=== PATIENT | female | born 1950 | race Caucasian/White ===

== ENCOUNTER 2020-04-12 01:27 | Inpatient (IN) | payer MEDICARE ==
[2020-04-12] VITALS (19 sets, daily range): BP systolic 104–183; BP diastolic 54–116
[~2020-04-12] VITALS: Ht 167.6 cm; Wt 110.6 kg
--- NOTE | 2020-04-12 01:30 | NUR ---
RECIEVED REPORT FROM PARI AT [facility]. PT WAS INTUBATED R/T RESPIRATORY FAILURE. HX: OF DIABETES AND HTN, AX TO CODEINE. NO HEAD CT WAS OBTAINED RT MACHINE UNABLE TO SUPPORT INTUBATED PT. PT HAS 18 G IV IN LAC, AND 18 G IV R HAND. SIZE [address] AND [address].
--- NOTE | 2020-04-12 01:40 | NUR ---
X RAY AT BEDSIDE
[2020-04-12] MEDS ORDERED: iohexol 350MG/ML 100ml bottle IV ONE (01:44)
--- NOTE | 2020-04-12 01:45 | NUR ---
PT TO CT
[2020-04-12] MEDS ORDERED: propofol 1000mg/100ml bottle 100 ML IV SCH (01:46)
[2020-04-12] MEDS ORDERED: FENTANYL-0.9 % NACL/PF 100 ML IV PRN (01:46)
--- NOTE | 2020-04-12 02:05 | NUR ---
PT BACK FROM CT
[2020-04-12] MEDS ORDERED: azithromycin/NS 500mg/250ml 250 ML IV ONE (03:00)
--- NOTE | 2020-04-12 03:16 | NUR ---
rt here to pull et tube 3-4 cm per MD Keita
[2020-04-12] MEDS: fentaNYL/PF 50MCG/1 ML 2ML syringe IV PRN (03:46)
[2020-04-12] MEDS ORDERED: acetaminophen 325mg tablet PO PRN ×2 (04:05)
[2020-04-12] MEDS ORDERED: potassium CL 10mEq/100ml bag 100 ML IV PRN (04:05)
[2020-04-12] MEDS ORDERED: dextrose ORAL solution 15 GM/59 ML bottle PO PRN ×2 (04:05)
[2020-04-12] MEDS ORDERED: glucagon, human recombinant 1mg kit SUBCUT PRN (04:05)
[2020-04-12] MEDS ORDERED: MESSAGE TO PHARMACY PO ONE (04:05)
[2020-04-12] MEDS ORDERED: ondansetron/PF 4mg/2ml inj IV PRN (04:05)
[2020-04-12] MEDS ORDERED: dextrose 50%-water 50ml dispensing syringe IV PRN ×2 (04:05)
[2020-04-12] MEDS ORDERED: albuterol 2.5 MG/3 ML nebule NEB PRN (04:05)
[2020-04-12] MEDS ORDERED: acetaminophen 650mg rectal suppository RC PRN (04:05)
[2020-04-12] MEDS ORDERED: insulin Lispro (HumaLOG) vial - multi-dose SQ SCH (04:05)
[2020-04-12] MEDS ORDERED: CHOL-4 PO (04:06)
[2020-04-12] MEDS ORDERED: TOPI50TA24 PO (04:06)
[2020-04-12] MEDS ORDERED: LISI40TA4 PO (04:16)
[2020-04-12] MEDS ORDERED: DULO30CA52 PO (04:16)
[2020-04-12] MEDS ORDERED: INSU100I31 SQ (04:16)
[2020-04-12] MEDS ORDERED: FURO40TA4 PO (04:16)
[2020-04-12] MEDS ORDERED: POTA10TA19 PO (04:16)
[2020-04-12 04:59] LABS: CLARITY,URINE CLEAR (Clear); COLOR,URINE YELLOW (Yellow); GLUCOSE, URINE NEGATIVE (Neg); KETONES,URINE NEGATIVE (Neg); LEUKOCYTE ESTERASE ,URINE SMALL (Neg); NITRITES, URINE NEGATIVE (Neg); OCCULT BLOOD,URINE NEGATIVE (Neg); PH,URINE 6.5 (4.8-8.0); PROTEIN,URINE NEGATIVE (Neg); UROBILINOGEN,URINE 0.2 E.U/dL (0.2-1.0)
[2020-04-12 05:06] LABS: UA COLLECTION TYPE FOLEY CATH
[2020-04-12 05:07] LABS: BACTERIA,URINE NONE SEEN /HPF (Neg); RBC,URINE NONE SEEN /HPF (0-2); WBC,URINE 0-4 /HPF (0-4)
[2020-04-12 05:08] LABS: SQUAMOUS EPITHELIAL CELL,UR FEW /LPF (FEW)
[2020-04-12] MEDS: normal saline 1000ml 1,000 ML IV SCH ×2 (05:23→15:05)
[2020-04-12] MEDS: FENTANYL-0.9 % NACL/PF 100 ML IV PRN ×3 (05:24→22:10)
--- NOTE | 2020-04-12 05:27 | NUR ---
pt arrived to room around 0500, report and chart received from Stacey VALENCIA and was able to ask questions. Pt transferred to CICU bed, placed on the monitor, and drips were switched to our pumps. The pt is hypertensive, Angel Luis COVERING AND LINING SUPERVISOR is aware, we are currently switching over sedation to fentanyl and versed drips. NG in left nare, secured with tape and placed to low intermittent suction, draining light green gastric contents. Ordaz catheter secured and draining clear yellow urine. Skin clear and intact. 8.0 ET tube at 22cm @ the teeth secured with comfit placed to vent, pt tolerating it well. The pt does have moderate to large amounts of thick creamy vergara secretions being suctioned from the ET tube. Will continue to monitor
--- NOTE | 2020-04-12 06:52 | NUR ---
Problems reprioritized. Patient report given, questions answered & plan of care reviewed with Ann VALENCIA.
[2020-04-12] MEDS: docusate sodium 100mg/10ml UD cup PO SCH ×2 (07:07→21:21)
[2020-04-12] MEDS: furosemide 40mg tablet PO SCH (07:08)
[2020-04-12] MEDS: lisinopril 20mg tablet PO SCH (07:08)
[2020-04-12] MEDS: pantoprazole 40 MG vial IV SCH (07:08)
[2020-04-12] MEDS: ipratropium/albuterol 3ml nebule NEB SCH ×5 (07:47→22:53)
[2020-04-12] MEDS: duloxetine 30mg CAPSULE.DR PO SCH (08:00)
[2020-04-12] MEDS ORDERED: CHOLECALCIFEROL 10000 UNIT PO SCH (08:00)
[2020-04-12] MEDS: topiramate 25mg tablet PO SCH ×2 (09:15→21:22)
[2020-04-12 10:40] LABS: BASOPHILS # (AUTO) 0.1 X10'3 (0-0.2); BASOPHILS % (AUTO) 0.4 % (0-1); EOSINOPHILS # (AUTO) 0.1 X10'3 (0-0.9); EOSINOPHILS % (AUTO) 0.3 % (0-6); HEMATOCRIT 46.3 % (35.0-45.0); LYMPHOCYTES # (AUTO) 0.7 X10'3 (1.1-4.8); LYMPHOCYTES % (AUTO) 4.1 % (21-51); MEAN CORPUSCULAR HEMOGLOBIN 28.3 PG (27.0-31.0); MEAN CORPUSCULAR HGB CONC 32.4 g/dL (33.0-36.5); MEAN CORPUSCULAR VOLUME 87.5 FL (78-98); MEAN PLATELET VOLUME 7.9 FL (7.4-10.4); MONOCYTES # (AUTO) 0.7 X10'3 (0-0.9); MONOCYTES % (AUTO) 4.2 % (2-12); PLATELET COUNT 230 X10'3 (140-440); RED BLOOD COUNT 5.29 X10'6 (4.20-5.60); WHITE BLOOD COUNT 17.6 X10'3 (4.5-11.0)
[2020-04-12] MEDS: enoxaparin 40mg/0.4ml syringe SUBCUT SCH (10:47)
[2020-04-12 10:57] LABS: ALANINE AMINOTRANSFERASE 10 U/L (12-78); ALBUMIN 2.9 G/DL (3.4-5.0); ALBUMIN/GLOBULIN RATIO 0.6 (1.1-1.5); ALKALINE PHOSPHATASE 122 IU/L (46-116); ANION GAP 6 (8-16); ASPARTATE AMINO TRANSFERASE 15 U/L (10-37); BILIRUBIN,TOTAL 0.6 MG/DL (0.1-1.0); BLOOD UREA NITROGEN 11 MG/DL (7-18); BUN/CREATININE RATIO 10.5 (6.6-38.0); CALCIUM 8.3 MG/DL (8.5-10.1); CHLORIDE 106 MMOL/L (99-107); CREATININE 1.05 MG/DL (0.40-0.90); GLUCOSE 154 MG/DL (70-104); PARTIAL THROMBOPLASTIN TIME 26 SECONDS (22-32); PHOSPHORUS 3.5 MG/DL (2.3-4.5); POTASSIUM 3.7 MMOL/L (3.5-5.1); SODIUM 142 MMOL/L (135-145); TOTAL CARBON DIOXIDE 29.8 MMOL/L (24-32); TOTAL PROTEIN 7.4 G/DL (6.4-8.2); eGFR 52 ML/MIN
[2020-04-12 10:59] LABS: HEMOGLOBIN A1C 6.9 % (4.5-6.2)
--- NOTE | 2020-04-12 12:00 | NUR ---
Initial: pt intubated after reportedly having gurgling respirations after eating yogurt and went unresponsive, possibly aspirated per H&P. Has h/o HTN, and Type II DM. Per H&P CT revealed left lower lobe consolidation consistent with lobar pneumonia and bilateral interstitial pneumonic infiltrates . Recommend: 1. IF tube feeding while intubated recommend Vital High Protein at 60 ml/hr will provide total volume 1440 ml, 1440 cals, 126 g protein, 1210 ml water. 2. IF tube feeding: daily wts, prealbumin q , additional water flush 100 ml q 4 Addendum: 04/12/20 at [address] Amended: Links added.
[2020-04-12] MEDS: CefTRIAXone 2gm/D5W 50ml 50 ML IV SCH (12:59)
[2020-04-12] MEDS: midazolam 100mg in NS 100ml 100 ML IV PRN (16:33)
--- NOTE | 2020-04-12 18:30 | NUR ---
Patient in room CICU 2010. I have received report from MARIE VALENCIA and had the opportunity to ask questions and assume patient care.
[2020-04-12] MEDS: insulin glargine (Lantus) pen - multi-dose SQ SCH (21:00)
[2020-04-12] MEDS: lactobacillus rhamnosus 10,000 MMU CELLS/CAPSULE PO SCH (21:21)
[2020-04-12 23:45] LABS: ALANINE AMINOTRANSFERASE 8 U/L (12-78); ALBUMIN 2.4 G/DL (3.4-5.0); ALBUMIN/GLOBULIN RATIO 0.6 (1.1-1.5); ALKALINE PHOSPHATASE 108 IU/L (46-116); ANION GAP 6 (8-16); ASPARTATE AMINO TRANSFERASE 14 U/L (10-37); BILIRUBIN,TOTAL 0.6 MG/DL (0.1-1.0); BLOOD UREA NITROGEN 12 MG/DL (7-18); BUN/CREATININE RATIO 11.5 (6.6-38.0); CALCIUM 8.8 MG/DL (8.5-10.1); CHLORIDE 107 MMOL/L (99-107); CREATININE 1.04 MG/DL (0.40-0.90); GLUCOSE 157 MG/DL (70-104); MAGNESIUM 2.1 MG/DL (1.5-2.4); PHOSPHORUS 3.9 MG/DL (2.3-4.5); POTASSIUM 3.5 MMOL/L (3.5-5.1); SODIUM 141 MMOL/L (135-145); TOTAL PROTEIN 6.5 G/DL (6.4-8.2); eGFR 53 ML/MIN
[2020-04-13] VITALS (24 sets, daily range): BP systolic 105–146; BP diastolic 50–78
[2020-04-13] MEDS: normal saline 1000ml 1,000 ML IV SCH (01:56)
[2020-04-13] MEDS ORDERED: mineral oil/petrolatum ophthal oint EACHEYE SCH (02:00)
[2020-04-13] MEDS: azithromycin/NS 500mg/250ml 250 ML IV SCH (02:49)
[2020-04-13] MEDS: ipratropium/albuterol 3ml nebule NEB SCH ×6 (03:31→23:27)
[2020-04-13 05:32] LABS: BASOPHILS % (AUTO) 0.4 % (0-1); EOSINOPHILS # (AUTO) 0.1 X10'3 (0-0.9); EOSINOPHILS % (AUTO) 0.7 % (0-6); HEMATOCRIT 42.1 % (35.0-45.0); HEMOGLOBIN 13.6 g/dl (12.0-16.0); LYMPHOCYTES # (AUTO) 1.5 X10'3 (1.1-4.8); LYMPHOCYTES % (AUTO) 12.4 % (21-51); MEAN CORPUSCULAR HEMOGLOBIN 27.9 PG (27.0-31.0); MEAN CORPUSCULAR HGB CONC 32.2 g/dL (33.0-36.5); MEAN CORPUSCULAR VOLUME 86.8 FL (78-98); MEAN PLATELET VOLUME 8.4 FL (7.4-10.4); MONOCYTES # (AUTO) 0.8 X10'3 (0-0.9); MONOCYTES % (AUTO) 6.7 % (2-12); NEUTROPHILS # (AUTO) 9.5 X10'3 (1.8-7.7); NEUTROPHILS % (AUTO) 79.8 % (42-75); PLATELET COUNT 214 X10'3 (140-440); RED BLOOD COUNT 4.86 X10'6 (4.20-5.60); RED CELL DISTRIBUTION WIDTH 15.4 % (11.5-14.5); WHITE BLOOD COUNT 11.9 X10'3 (4.5-11.0)
[2020-04-13 05:40] LABS: ALANINE AMINOTRANSFERASE 7 U/L (12-78); ALBUMIN 2.2 G/DL (3.4-5.0); ALBUMIN/GLOBULIN RATIO 0.5 (1.1-1.5); ALKALINE PHOSPHATASE 101 IU/L (46-116); ANION GAP 7 (8-16); ASPARTATE AMINO TRANSFERASE 12 U/L (10-37); BILIRUBIN,TOTAL 0.6 MG/DL (0.1-1.0); BLOOD UREA NITROGEN 14 MG/DL (7-18); BUN/CREATININE RATIO 16.1 (6.6-38.0); CALCIUM 8.3 MG/DL (8.5-10.1); CHLORIDE 108 MMOL/L (99-107); CREATININE 0.87 MG/DL (0.40-0.90); GLUCOSE 141 MG/DL (70-104); PHOSPHORUS 3.3 MG/DL (2.3-4.5); POTASSIUM 3.4 MMOL/L (3.5-5.1); SODIUM 143 MMOL/L (135-145); TOTAL CARBON DIOXIDE 27.6 MMOL/L (24-32); TOTAL PROTEIN 6.3 G/DL (6.4-8.2); eGFR 65 ML/MIN
--- NOTE | 2020-04-13 06:15 | NUR ---
Patient in room CICU 2010. I have received report from RN and had the opportunity to ask questions and assume patient care.
[2020-04-13] MEDS ORDERED: potassium Cl 20 mEq SR tablet PO PRN ×2 (06:35)
[2020-04-13] MEDS ORDERED: potassium CL 10mEq/100ml bag 100 ML IV PRN (06:35)
[2020-04-13] MEDS: FENTANYL-0.9 % NACL/PF 100 ML IV PRN (06:37)
[2020-04-13] MEDS: midazolam 100mg in NS 100ml 100 ML IV PRN (06:37)
--- NOTE | 2020-04-13 06:38 | NUR ---
Problems reprioritized. Patient report given, questions answered & plan of care reviewed with LESLEY VALENCIA.
[2020-04-13] MEDS: furosemide 40mg tablet PO SCH (07:36)
[2020-04-13] MEDS: pantoprazole 40 MG vial IV SCH (07:36)
[2020-04-13] MEDS: topiramate 25mg tablet PO SCH (07:36)
[2020-04-13] MEDS: docusate sodium 100mg/10ml UD cup PO SCH (07:36)
[2020-04-13] MEDS: enoxaparin 40mg/0.4ml syringe SUBCUT SCH (07:37)
[2020-04-13] MEDS: duloxetine 30mg CAPSULE.DR PO SCH (07:38)
[2020-04-13] MEDS: mineral oil/petrolatum ophthal oint EACHEYE SCH ×3 (08:02→20:09)
[2020-04-13] MEDS: lactobacillus rhamnosus 10,000 MMU CELLS/CAPSULE PO SCH (08:02)
[2020-04-13] MEDS: lisinopril 20mg tablet PO SCH (08:03)
[2020-04-13] MEDS: K and/or MAG REPLACEMENT MC SCH (08:04)
[2020-04-13] MEDS ORDERED: dexmedetomidin/NS 400mcg/100ml 100 ML IV SCH (09:45)
[2020-04-13] MEDS: dexmedetomidin/NS 400mcg/100ml 100 ML IV SCH ×2 (10:44→19:50)
--- NOTE | 2020-04-13 12:21 | NUR ---
TF Consult: Pt NGTF to start today per MD; MAP 96 this AM. BETHANY d/w RN regarding opioid antagonist w/ TF if MD agreeable since receiving opiates. Receiving routine bowel care w/ no BM since admit yesterday. EN recs below. Will continue to monitor for TF tolerance. Initial: pt intubated after reportedly having gurgling respirations after eating yogurt and went unresponsive, possibly aspirated per H&P. Has h/o HTN, and Type II DM. Per H&P CT revealed left lower lobe consolidation consistent with lobar pneumonia and bilateral interstitial pneumonic infiltrates . Recommend: 1. NGTF per MD using Vital High Protein at 80ml/hr goal; to provide 1920ml fluid, 1920 kcals, 1613ml free water, and 168g protein. 2. additional water flush 100 ml q4 3. daily wts, prealbumin q / 4. routine bowel care; consider opioid antagonist on opiates 5. upon extubation BSS prior to PO diet Addendum: 04/13/20 at [address] Amended: Links added.
[2020-04-13] MEDS: CefTRIAXone 2gm/D5W 50ml 50 ML IV SCH (12:57)
[2020-04-13] MEDS ORDERED: insulin regular, human U-100 3ml vial - multi-dose SQ SCH (13:25)
[2020-04-13] MEDS ORDERED: acetaminophen 325mg/10.15ml oral unit dose solution NG PRN ×2 (13:28)
[2020-04-13] MEDS ORDERED: dextrose ORAL solution 15 GM/59 ML bottle NG PRN ×2 (13:29)
[2020-04-13] MEDS: POTASSIUM BICARB 20meq eff tab 20 MEQ TABLET.EFF NG PRN ×3 (13:52→23:39)
--- NOTE | 2020-04-13 18:30 | NUR ---
Problems reprioritized. Patient report given, questions answered & plan of care reviewed with hs RN.
--- NOTE | 2020-04-13 18:30 | NUR ---
Patient in room CICU 2010. I have received report from Judy almaraz and had the opportunity to ask questions and assume patient care.
[2020-04-13] MEDS: docusate sodium 100mg/10ml UD cup NG SCH (19:57)
[2020-04-13] MEDS: topiramate 25mg tablet NG SCH (19:57)
[2020-04-13] MEDS: lactobacillus rhamnosus 10,000 MMU CELLS/CAPSULE NG SCH (19:57)
[2020-04-13] MEDS: insulin glargine (Lantus) pen - multi-dose SQ SCH (20:09)
[2020-04-13] MEDS: fentaNYL/PF 50MCG/1 ML 2ML syringe IV PRN (21:55)
[2020-04-14] VITALS (24 sets, daily range): BP systolic 105–158; BP diastolic 46–84
[2020-04-14] MEDS: dexmedetomidin/NS 400mcg/100ml 100 ML IV SCH ×3 (02:18→23:14)
[2020-04-14] MEDS: azithromycin/NS 500mg/250ml 250 ML IV SCH (02:18)
[2020-04-14] MEDS: mineral oil/petrolatum ophthal oint EACHEYE SCH ×4 (02:18→20:00)
--- NOTE | 2020-04-14 02:34 | NUR ---
pt alert and able to follow commands and communicate through writing.
[2020-04-14] MEDS: ipratropium/albuterol 3ml nebule NEB SCH ×6 (03:49→23:08)
[2020-04-14] MEDS ORDERED: lactulose 20gm/30ml cup NG PRN (04:05)
--- NOTE | 2020-04-14 06:40 | NUR ---
RECEIVED REPORT FROM MANUEL VALENCIA
[2020-04-14 06:44] LABS: BASOPHILS % (AUTO) 0.4 % (0-1); EOSINOPHILS # (AUTO) 0.1 X10'3 (0-0.9); EOSINOPHILS % (AUTO) 1.1 % (0-6); HEMATOCRIT 37.9 % (35.0-45.0); HEMOGLOBIN 12.3 g/dl (12.0-16.0); LYMPHOCYTES # (AUTO) 1.4 X10'3 (1.1-4.8); LYMPHOCYTES % (AUTO) 14.7 % (21-51); MEAN CORPUSCULAR HEMOGLOBIN 27.9 PG (27.0-31.0); MEAN CORPUSCULAR HGB CONC 32.5 g/dL (33.0-36.5); MEAN CORPUSCULAR VOLUME 85.9 FL (78-98); NEUTROPHILS # (AUTO) 7.3 X10'3 (1.8-7.7); NEUTROPHILS % (AUTO) 73.8 % (42-75); PLATELET COUNT 209 X10'3 (140-440); RED BLOOD COUNT 4.41 X10'6 (4.20-5.60); RED CELL DISTRIBUTION WIDTH 15.1 % (11.5-14.5); WHITE BLOOD COUNT 9.8 X10'3 (4.5-11.0)
[2020-04-14 07:06] LABS: ALBUMIN 2.4 G/DL (3.4-5.0); ALBUMIN/GLOBULIN RATIO 0.6 (1.1-1.5); ALKALINE PHOSPHATASE 89 IU/L (46-116); ANION GAP 8 (8-16); ASPARTATE AMINO TRANSFERASE 7 U/L (10-37); BILIRUBIN,TOTAL 0.3 MG/DL (0.1-1.0); BLOOD UREA NITROGEN 13 MG/DL (7-18); CALCIUM 8.7 MG/DL (8.5-10.1); CHLORIDE 107 MMOL/L (99-107); CREATININE 0.93 MG/DL (0.40-0.90); GLUCOSE 154 MG/DL (70-104); MAGNESIUM 1.9 MG/DL (1.5-2.4); PHOSPHORUS 3.6 MG/DL (2.3-4.5); POTASSIUM 3.6 MMOL/L (3.5-5.1); PREALBUMIN 13.3 MG/DL (19-36); SODIUM 140 MMOL/L (135-145); TOTAL CARBON DIOXIDE 25.1 MMOL/L (24-32); TOTAL PROTEIN 6.5 G/DL (6.4-8.2); eGFR 60 ML/MIN
[2020-04-14 07:35] LABS: ALANINE AMINOTRANSFERASE < 6 U/L (12-78)
[2020-04-14] MEDS: K and/or MAG REPLACEMENT MC SCH (08:00)
[2020-04-14] MEDS: pantoprazole 40 MG vial IV SCH (08:33)
[2020-04-14] MEDS: docusate sodium 100mg/10ml UD cup NG SCH ×2 (08:33→20:00)
[2020-04-14] MEDS: enoxaparin 40mg/0.4ml syringe SUBCUT SCH (08:33)
[2020-04-14] MEDS: lactobacillus rhamnosus 10,000 MMU CELLS/CAPSULE NG SCH ×2 (08:34→20:05)
[2020-04-14] MEDS: lisinopril 20mg tablet NG SCH (08:34)
[2020-04-14] MEDS: duloxetine 30mg CAPSULE.DR PO SCH ×2 (08:34→08:37)
[2020-04-14] MEDS: topiramate 25mg tablet NG SCH ×2 (08:34→20:05)
[2020-04-14] MEDS: furosemide 40mg tablet NG SCH (08:34)
[2020-04-14] MEDS: CefTRIAXone 2gm/D5W 50ml 50 ML IV SCH (11:56)
--- NOTE | 2020-04-14 12:23 | NUR ---
F/u: Pt extubated L NG removed and advanced to pureed/thin diet per HOTEL MANAGER recs. No BM yet 2 days since admit receiving routine colace. Will monitor for PO diet tolerance and additional protein needs. Recommend: 1. continue pureed/thin diet per HOTEL MANAGER/MD 2. consider carb controlled restriction if adequate PO meals given DM 3. routine bowel care 4. monitor for ONS needs 5. weekly wts Addendum: 04/14/20 at [address] Amended: Links added.
--- NOTE | 2020-04-14 18:38 | NUR ---
gave report to beverly almaraz
--- NOTE | 2020-04-14 18:38 | NUR ---
gave report to beverly almaraz
[2020-04-14] MEDS: insulin glargine (Lantus) pen - multi-dose SQ SCH (21:32)
[2020-04-14] MEDS ORDERED: temazepam 15mg capsule PO ONE ×2 (21:40→22:30)
[2020-04-15] VITALS (13 sets, daily range): BP systolic 131–177; BP diastolic 47–86
[2020-04-15] MEDS: fentaNYL/PF 50MCG/1 ML 2ML syringe IV PRN (01:53)
[2020-04-15] MEDS: mineral oil/petrolatum ophthal oint EACHEYE SCH ×2 (02:00→08:00)
[2020-04-15] MEDS: azithromycin/NS 500mg/250ml 250 ML IV SCH (02:44)
[2020-04-15] MEDS: ipratropium/albuterol 3ml nebule NEB SCH ×3 (03:13→11:00)
[2020-04-15 05:41] LABS: BASOPHILS # (AUTO) 0.1 X10'3 (0-0.2); BASOPHILS % (AUTO) 0.5 % (0-1); EOSINOPHILS # (AUTO) 0.1 X10'3 (0-0.9); EOSINOPHILS % (AUTO) 0.6 % (0-6); HEMATOCRIT 37.9 % (35.0-45.0); HEMOGLOBIN 12.3 g/dl (12.0-16.0); LYMPHOCYTES # (AUTO) 1.1 X10'3 (1.1-4.8); LYMPHOCYTES % (AUTO) 9.5 % (21-51); MEAN CORPUSCULAR HGB CONC 32.6 g/dL (33.0-36.5); MEAN CORPUSCULAR VOLUME 85.9 FL (78-98); MEAN PLATELET VOLUME 8.3 FL (7.4-10.4); MONOCYTES # (AUTO) 0.9 X10'3 (0-0.9); MONOCYTES % (AUTO) 8.2 % (2-12); NEUTROPHILS % (AUTO) 81.2 % (42-75); PLATELET COUNT 252 X10'3 (140-440); RED BLOOD COUNT 4.41 X10'6 (4.20-5.60); RED CELL DISTRIBUTION WIDTH 15.2 % (11.5-14.5); WHITE BLOOD COUNT 11.1 X10'3 (4.5-11.0)
[2020-04-15 05:55] LABS: ALANINE AMINOTRANSFERASE 12 U/L (12-78); ALBUMIN 2.7 G/DL (3.4-5.0); ALBUMIN/GLOBULIN RATIO 0.6 (1.1-1.5); ALKALINE PHOSPHATASE 96 IU/L (46-116); ANION GAP 10 (8-16); ASPARTATE AMINO TRANSFERASE 13 U/L (10-37); BILIRUBIN,TOTAL 0.4 MG/DL (0.1-1.0); BLOOD UREA NITROGEN 14 MG/DL (7-18); BUN/CREATININE RATIO 13.5 (6.6-38.0); CALCIUM 9.2 MG/DL (8.5-10.1); CHLORIDE 110 MMOL/L (99-107); CREATININE 1.04 MG/DL (0.40-0.90); GLUCOSE 166 MG/DL (70-104); PHOSPHORUS 4.2 MG/DL (2.3-4.5); SODIUM 145 MMOL/L (135-145); TOTAL CARBON DIOXIDE 24.9 MMOL/L (24-32); TOTAL PROTEIN 7.1 G/DL (6.4-8.2); eGFR 53 ML/MIN
[2020-04-15 06:01] LABS: POTASSIUM 2.8 MMOL/L (3.5-5.1)
--- NOTE | 2020-04-15 06:32 | NUR ---
Patient in room CICU 2010. I have received report from ERIK Minor and had the opportunity to ask questions and assume patient care.
[2020-04-15] MEDS: docusate sodium 100mg/10ml UD cup NG SCH (07:37)
[2020-04-15] MEDS: enoxaparin 40mg/0.4ml syringe SUBCUT SCH (07:38)
[2020-04-15] MEDS: lactobacillus rhamnosus 10,000 MMU CELLS/CAPSULE NG SCH (07:38)
[2020-04-15] MEDS: furosemide 40mg tablet NG SCH (07:38)
[2020-04-15] MEDS: topiramate 25mg tablet NG SCH (07:38)
[2020-04-15] MEDS: lisinopril 20mg tablet NG SCH (07:39)
[2020-04-15] MEDS: POTASSIUM BICARB 20meq eff tab 20 MEQ TABLET.EFF NG PRN ×2 (07:40→11:35)
[2020-04-15] MEDS: K and/or MAG REPLACEMENT MC SCH (08:50)
[2020-04-15] MEDS ORDERED: LEVO500T2 PO (11:02)
[2020-04-15] MEDS: CefTRIAXone 2gm/D5W 50ml 50 ML IV SCH (11:35)
--- NOTE | 2020-04-15 13:51 | NUR ---
pt. discharged from facility at 1320. pt. was wheeled down to lobby by staff and picked up in a private vehicle. pt. signed and understood all paperwork. pt. understands to make f/u appointment with PCP. pt. IV was d/c intact. new med was called into [facility] in [place], [place]. pt. left with all belongings.
[2020-04-15] MEDS ORDERED: insulin glargine (Lantus) pen - multi-dose SQ SCH (21:00)
[2020-04-16] MEDS ORDERED: potassium chloride 8mEq ER tablet PO SCH (08:00)
== END 2020-04-15 13:20 | disposition home or self-care (01) | DRG 208 ==
LOC: ER 01:28 → ED HOLD 04:32 → CICU 2S 05:15
PROVIDERS: ADMIT Internal Medicine Critical Care Medicine; ATTEND Internal Medicine Critical Care Medicine
PROC: 5A1945Z Respiratory Ventilation, 24-96 Consecutive Hours (ICD-10-PCS; principal; 2020-04-12)
PROC: 0BH17EZ Insertion of Endotracheal Airway into Trachea, Via Natural or Artificial Opening (ICD-10-PCS; 2020-04-12)
PROC: B32T1ZZ Computerized Tomography (CT Scan) of Left Pulmonary Artery using Low Osmolar Contrast (ICD-10-PCS; 2020-04-12)
PROC: B3201ZZ Computerized Tomography (CT Scan) of Thoracic Aorta using Low Osmolar Contrast (ICD-10-PCS; 2020-04-12)
PROC: B32S1ZZ Computerized Tomography (CT Scan) of Right Pulmonary Artery using Low Osmolar Contrast (ICD-10-PCS; 2020-04-12)
PROC: 0D9670Z Drainage of Stomach with Drainage Device, Via Natural or Artificial Opening (ICD-10-PCS; 2020-04-12)
DX: J18.1 Lobar pneumonia, unspecified organism (principal); J96.00 Acute respiratory failure, unspecified whether with hypoxia or hypercapnia; J18.9 Pneumonia, unspecified organism; E11.9 Type 2 diabetes mellitus without complications; Z20.828 Contact with and (suspected) exposure to other viral communicable diseases; F41.9 Anxiety disorder, unspecified; N20.0 Calculus of kidney; I10 Essential (primary) hypertension; E66.9 Obesity, unspecified; Z88.5 Allergy status to narcotic agent; Z79.899 Other long term (current) drug therapy; Z79.4 Long term (current) use of insulin; Z68.39 Body mass index [BMI] 39.0-39.9, adult
CPT/HCPCS: 36415; 70450; 71045; 71275; 80053; 81001; 82948; 83036; 83605; 83735; 84100; 84132; 84134; 84145; 85025; 85610; 85730; 87040; 87070; 87081; 87088; 87635; 92508; 92616; 94002; 94003; 94640; 94760; 99291; C9113; G0378; J0456; J0696; J1650; J1815; J2405; J2704; J3010; J7030; Q9967

== ENCOUNTER 2021-09-08 10:15 | Outpatient (CLI) | payer MEDICARE ==
[~2021-09-08 10:15] MED LIST: CHOL-4 PO; DULO30CA52 PO; FURO40TA4 PO; INSU100I31 SQ; LISI40TA13 PO; POTA-192 PO; TOPI50TA24 PO
== END 2021-09-08 23:59 | disposition home or self-care (01) ==
LOC: RAD 10:15
DX: K57.30 Diverticulosis of large intestine without perforation or abscess without bleeding (principal)
CPT/HCPCS: 74270